=== PATIENT | female | born 1970 | race Two or more races ===

== ENCOUNTER → 2022-07-20 | Outpatient (CLI) | payer BC ==
[2022-07-20 09:53] LABS: Basophils # (auto) 0.1 10 ^3/uL (0-0.2); Basophils % (auto) 1.3 % (0.0-2.0); Eosinophils # (auto) 0.3 10 ^3/uL (0-0.8); Eosinophils % (auto) 5.5 % (0.0-7.0); Hematocrit 44.9 % (36.0-46.0); Hemoglobin 14.9 g/dL (12.2-16.2); Lymphocytes % (auto) 31.5 % (10.0-50.0); Mean Corpuscular Hemoglobin 28.8 pg (28.0-32.0); Mean Corpuscular Hgb Conc. 33.2 g/dL (32.0-36.0); Mean Corpuscular Volume 86.7 fL (80.0-100.0); Monocytes # (auto) 0.4 10 ^3/uL (0-1.3); Monocytes % (auto) 6.5 % (0.0-12.0); Neutrophils # (auto) 3.4 10 ^3/uL (1.6-8.6); Neutrophils % (auto) 55.2 % (37.0-80.0); Nucleated Red Blood Cells % 0.1 %; Red Blood Cells 5.18 10^6/uL (4.0-5.20); Red Cell Distribution Width 14.4 % (11.8-14.3); White Blood Cell 6.2 10^3/uL (4.4-10.8)
[2022-07-20 10:07] LABS: Albumin 3.2 g/dL (3.4-5.0); Calcium 8.9 mg/dL (8.5-10.1); Potassium 4.1 mmol/L (3.5-5.1)
[2022-07-20 10:11] LABS: BUN/Creatinine Ratio 15.6; Bilirubin, Total 0.5 mg/dL (0.2-1.0); Total Protein 8.3 g/dL (6.4-8.2)
== END | disposition home or self-care (01) ==
LOC: LAB 09:15
PROVIDERS: ATTEND Nurse Practitioner Family
DX: Z00.00 Encounter for general adult medical examination without abnormal findings (principal); I10 Essential (primary) hypertension; E11.65 Type 2 diabetes mellitus with hyperglycemia; E78.5 Hyperlipidemia, unspecified
CPT/HCPCS: 36415; 80053; 80061; 82043; 83036; 84439; 84443; 85025

== ENCOUNTER → 2023-11-14 | Outpatient (CLI) | payer OTHER | END | disposition home or self-care (01) | LOC: LAB 10:26 | DX: E03.9 Hypothyroidism, unspecified (principal) | CPT/HCPCS: 36415; 84439; 84443 ==

== ENCOUNTER → 2024-09-02 | Outpatient (CLI) | payer OTHER ==
[2024-09-02 08:21] LABS: Basophils # (auto) 0.1 10 ^3/uL (0-0.2); Basophils % (auto) 1.2 % (0.0-2.0); Eosinophils # (auto) 0.3 10 ^3/uL (0-0.8); Eosinophils % (auto) 3.8 % (0.0-7.0); Hematocrit 44.1 % (36.0-46.0); Hemoglobin 14.3 g/dL (12.2-16.2); Lymphocytes % (auto) 28.8 % (10.0-50.0); Mean Corpuscular Hemoglobin 28.5 pg (28.0-32.0); Mean Corpuscular Hgb Conc. 32.6 g/dL (32.0-36.0); Mean Corpuscular Volume 87.6 fL (80.0-100.0); Monocytes # (auto) 0.5 10 ^3/uL (0-1.3); Monocytes % (auto) 6.7 % (0.0-12.0); Neutrophils # (auto) 4.1 10 ^3/uL (1.6-8.6); Neutrophils % (auto) 59.5 % (37.0-80.0); Nucleated Red Blood Cells % 0.1 %; Platelet Count (auto) 202 10^3/uL (140-450); Red Blood Cells 5.03 10^6/uL (4.0-5.20); White Blood Cell 6.9 10^3/uL (4.4-10.8)
[2024-09-02 08:40] LABS: Creatinine, Urine 99.71 mg/dL (30.0-125.0)
[2024-09-02 08:42] LABS: Alanine Aminotransferase 14 U/L (7-40); Albumin 4.3 g/dL (3.2-4.8); Alkaline Phosphatase 71 U/L (46-116); Anion Gap 6 (5-15); Aspartate Aminotransferase 14 U/L (13-40); BUN/Creatinine Ratio 15.4 (10.0-20.0); Blood Urea Nitrogen 12 mg/dL (9-23); Calcium 9.8 mg/dL (8.7-10.4); Chloride 101 mmol/L (98-107); Potassium 4.7 mmol/L (3.5-5.1); Sodium 140 mmol/L (136-145)
[2024-09-02 08:43] LABS: Bilirubin, Total 0.5 mg/dL (0.2-1.0); Cholesterol 192 mg/dL (< 200); Total Protein 7.6 g/dL (5.7-8.2)
[2024-09-02 08:44] LABS: HDL Cholesterol 49 mg/dL (40-59)
[2024-09-02 08:52] LABS: Carbon Dioxide 33 mmol/L (20-31); Glucose 138 mg/dL (74-106); LDL Cholesterol 120 mg/dL (< 100); Triglycerides 208 mg/dL (< 150)
== END | disposition home or self-care (01) ==
LOC: LAB 07:53
PROVIDERS: ATTEND Nurse Practitioner Family
DX: Z00.01 Encounter for general adult medical examination with abnormal findings (principal); E11.29 Type 2 diabetes mellitus with other diabetic kidney complication
CPT/HCPCS: 36415; 80053; 80061; 82043; 82570; 83036; 84443; 85025

== ENCOUNTER → 2024-09-14 | Outpatient (CLI) | payer OTHER | END | disposition home or self-care (01) | LOC: LAB 07:28 | PROVIDERS: ATTEND Nurse Practitioner Family | DX: E04.9 Nontoxic goiter, unspecified (principal) | CPT/HCPCS: 36415; 84439; 84443 ==

== ENCOUNTER 2025-06-11 08:22 | Inpatient (IN) | payer BC, OTHER ==
[~2025-06-11] VITALS: Ht 165.1 cm; Wt 130.0 kg
[2025-06-11 08:22] VITALS: PULSE 0; O2SAT 0
[2025-06-11 08:30] VITALS: BP 0/0; RESP 0; TEMP 99.5; O2SAT 0
--- NOTE | 2025-06-11 08:32 | ED.PDOC ---
CPR-HPI HPI Comments 55 y.o female with PMHx of COPD and DM, presents to the ED via EMS s/p cardiac arrest. EMS reports patient was last seen normal 45 minutes prior to ED arrival complaining of SOB per on scene. Witnesses on scene initiated CPR while EMS got on scene to take over. A total of 7 Epinephrine were given prior to arrival with rhythm alternating between PEA 40, asystole and back to PEA. BS initially was reported at 110. Upon arrival, patient had a low temperature of 99.5 F. No further information obtain as no family is present at bedside at this time. 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: Unobtainable Family History Family History: Unobtainable Social History Smoker: Unobtainable Alcohol: Unobtainable Drugs: Unobtainable Lives In: Home Unable to Obtain due to: Medical Urgency Physical Exam General Appearance: Obese, Severe Distress HEENT: Other (Pupils are fixed and dilated) Neck: Supple Respiratory: Other (The patient is apneic at this time, the patient is being mechanically ventilated by bag-valve mask) Cardiovascular: Other (Asystole) Breast Exam: Deferred Gastrointestinal: No Organomegaly, Soft Genitalia: Deferred Pelvic: Deferred Rectal: Deferred Extremities: No pedal edema, Other (Delayed capillary refill) Musculoskeletal : Apperance: Normal Neurologic: Other (GCS of three) Cerebellar Function: Unable to Test Reflexes: Normal Skin: Dry, Pallor, Warm Lymphatic: No Adenopathy EKG EKG : Pulse Rate (adult): 133 Cardiac Rhythm: Afib (Rapid response) Was a procedure done? Was a procedure done?: Yes Sedation Sedation?: No Intubation Indication: Respiratory Insufficiency, Altered Mental Status, Airway Protection Prep: Preoxygenation Pretreated with: Sedation Intubation Approach: Orotracheal Intubation size: cm (8.0 inch ) Informed consent obtained: No (Emergent) Risks/benefits/alt described: No (Emergent ) Differential Dx CPR Differential Diagnosis: Cardiopulmonary arrest, Cardiac Tamponade, Cardiogenic shock, Dysrhythmia, Electrolyte disorder, Heart Block, Myocardial Infarction, Pneumothorax, Pulmonary Embolus, Respiratory Failure X-Ray, Labs, Meds, VS Vital Signs Date Time Temp Pulse Resp B/P (MAP) Pulse Ox O2 Delivery O2 Flow Rate FiO2 06/11/25 08:30 99.5 0 0 0/0 0 99.5 06/11/25 08:22 0 0 Mechanical Ventilator+ 100 100 06/11/25 08:22 99.2 0 0 0/0 (0) 0 99.2 IV Hep-Lock was established. We did a 2nd Hep-Lock at this time. ACLS was followed. The patient was intubated with an 8.0 endotracheal tube. CPR was continued The patient had into atrial fibrillation with rapid response. The patient was hypotensive so the patient was started on amiodarone 150 mg IV push and then an amiodarone drip. The patient was also started on norepinephrine. At this time, despite our efforts, the patient has a . We were able to talk with the patient's as well as son. They are aware of the patient's condition. We were briefly able to get a pulse back when the patient went into atrial fibrillation with rapid response Time of 1ST Reevaluation: 08:27 Reevaluation 1ST: Unchanged Patient Education/Counseling: Pt Unresponsive Family Education/Counseling: Diagnosis, Treatment, Prognosis SEPSIS Sepsis Screen Physician Orders Complete Blood Count (06/11/25 08:31) Weston Catheters (06/11/25 08:31) Ngt/Ogt (06/11/25 08:31) Supervisor Covering And Lining (06/11/25 08:31) Blood Pressure (06/11/25 08:31) Pulse Oximetry (06/11/25 08:31) Heplock Iv (06/11/25 08:31) Electrocardigram (06/11/25 08:31) Electrocardigram (06/11/25 09:31) Electrocardigram (06/11/25 11:31) Amiodarone 450mg/250ml Ae (Cordarone) (06/11/25 08:45) Vital Signs Date Time Temp Pulse Resp B/P (MAP) Pulse Ox O2 Delivery O2 Flow Rate FiO2 06/11/25 08:30 99.5 0 0 0/0 0 99.5 06/11/25 08:22 0 0 Mechanical Ventilator+ 100 100 06/11/25 08:22 99.2 0 0 0/0 (0) 0 99.2 Departure 1 Departure Time of Disposition: 09:35 Impression: Primary Impression: Cardiopulmonary arrest Disposition: 20 Condition: Other (The patient ) Critical Care Note Critical Care Time?: No Heart Score Heart Score: Heart Score Response (Comments) Value History N/A 0 EKG N/A 0 Age N/A 0 Risk Factors N/A 0 Troponin N/A 0 Total 0 Stability Stability form required: No I personally scribed for HARRIET LIMA MD ([email or web address]) on 06/11/25 at 08:32. Electronically submitted by Lore Gotti ([facility]). HARRIET LIMA MD Jun 11, 2025 08:32
[2025-06-11] MEDS ORDERED: AMIODARONE BOLUS KIT 100 ML IV ONE (08:45)
[2025-06-11] MEDS ORDERED: NOREPINEPHRINE 8 MG/250ML KIT 250 ML IV SCH (08:45)
[2025-06-11] MEDS ORDERED: ACETAMINOPHEN 325 MG TAB PO PRN (08:45)
[2025-06-11] MEDS ORDERED: ONDANSETRON HCL 4 MG/2 ML VIAL IV PRN (08:45)
[2025-06-11] MEDS ORDERED: NITROGLYCERIN 0.4 MG SL TAB SL PRN (08:45)
[2025-06-11] MEDS ORDERED: DEXTROSE (50%) 50ML SYRG IV PRN (08:45)
[2025-06-11] MEDS ORDERED: MIDAZOLAM DRIP 100 mg/100mL NS 100 ML IV SCH (08:45)
[2025-06-11] MEDS ORDERED: MORPHINE SULFATE INJ 2 MG/ml SYRG IV PRN (08:45)
--- NOTE | 2025-06-11 08:47 | DVHHP2 ---
History of Present Illness Reason for Visit: Status post cardiac arrest History of Present Illness Jerica Johnson is a 55-year-old female with past medical history per EMS of COPD and diabetes who presents to the ED after experiencing shortness of breath with her by her side. Per EMS reports patient was found in asystole CPR was started and then PE noted on monitor with chest compressions continued for about 35 minutes on the field. Patient was then transferred here to [facility] and intubated in the ED by the ER doctor with an 8.0 ETT and chest compressions were resumed immediately. Patient had access initially EN route by EMS left IO in tib-fib. Rosc was achieved in ED. Second code blue was called and patient . Pulmonary: COPD Endocrine: Diabetes Lives: with Family Domestic Violence: Neg Review of Systems Constitutional: Yes: Other (Status post cardiac arrest) Allergies: Coded Allergies: UNOBTAINABLE (Unverified , 06/11/25) Medications Current Medications Medications Dose Ordered Sig/Fidelia Route Start Time Stop Time Status Last Admin Dose Admin Norepinephrine Bitartrate 250 ml @ 3.75 mls/hr Q24H IV 06/11/25 08:45 Ondansetron HCl 4 mg Q4HP PRN IV 06/11/25 08:45 UNV Acetaminophen 650 mg Q6HP PRN PO 06/11/25 08:45 UNV Nitroglycerin 0.4 mg Q5MINP PRN SL 06/11/25 08:45 UNV Morphine Sulfate 2 mg Q30M PRN IV 06/11/25 08:45 UNV Diagnostic Test (Pha) 1 strip Q6HR 06/11/25 12:00 UNV Insulin Human Regular Q6HR SC 06/11/25 12:00 UNV Dextrose 50 ml UD PRN IV 06/11/25 08:45 UNV Exam Vital Signs Vital Signs Date Time Temp Pulse Resp B/P (MAP) Pulse Ox O2 Delivery O2 Flow Rate FiO2 06/11/25 08:33 133 06/11/25 08:30 99.5 0 0/0 0 99.5 Abdominal: Soft SEPSIS Sepsis Screen Date sepsis recognized/suspect: Jun 11, 2025 Time Sepsis recognized/suspect: 821 Recent Procedure: No On Antibiotic Therapy: No Respiratory Rate >20: No Heart Rate >90: No Temp<36 C (96.8 F) or >38.3 C: No SBP <90 or MAP <65 mmHG: No New Acute Mental Status Change: Yes Is the patient on CPAP, BIPAP,: Yes Physician Orders Complete Blood Count (06/11/25 08:31) Urinalysis (06/11/25 08:31) Chest Portable (06/11/25 08:31) Drug Screen (06/11/25 08:31) Magnesium (06/11/25 08:31) Abg W/ Co-Ox (06/11/25 08:31) Weston Catheters (06/11/25 08:31) Ngt/Ogt (06/11/25 08:31) Cafeteria Associate (06/11/25 08:31) Blood Pressure (06/11/25 08:31) Pulse Oximetry (06/11/25 08:31) Heplock Iv (06/11/25 08:31) Troponin-I Hs (06/11/25 08:31) Electrocardigram (06/11/25 08:31) Basic Metabolic Panel (06/11/25 08:31) Troponin-I Hs (06/11/25 09:31) Troponin-I Hs (06/11/25 11:31) Electrocardigram (06/11/25 09:31) Electrocardigram (06/11/25 11:31) Amiodarone Bolus Kit (Cordarone) (06/11/25 08:45) Amiodarone 450mg/250ml Ae (Cordarone) (06/11/25 08:45) Norepinephrine 8 Mg/250ml Kit (Levophed) (06/11/25 08:45) Admit (06/11/25 08:32) Allergies (06/11/25 08:32) Code Status (06/11/25 08:32) Ondansetron Hcl (Zofran) (06/11/25 08:45) Complete Blood Count (06/12/25 04:00) Comprehensive Metabolic Panel (06/12/25 04:00) Npo (Nothing By Mouth) Diet (06/11/25 Breakfast) Echo 2d Mode Cardiac Dop (06/11/25 08:32) Acetaminophen Tablet (Tylenol Tablet) (06/11/25 08:45) Morphine Sulfate Injection (06/11/25 08:45) Stat Ekg For Chest Pain (06/11/25 08:32) Notify Md Of Changes From Base (06/11/25 08:32) Licensed Journeyman Electrician For 24 Hours (06/11/25 08:32) Emergency Dysrhythmia Protocol (06/11/25 08:32) Rhythm Strips Once Every Shift (06/11/25 08:32) Oxygen By Nasal Cannula (06/11/25 08:32) Glucose Blood (Accu-Chek Comfort Curve T (06/11/25 12:00) Insulin R (Human) (Insulin R) (06/11/25 12:00) Dextrose 50% Syringe (06/11/25 08:45) Head Without Contrast (06/11/25 08:32) Chest Xray 1 View (06/11/25 08:32) Ventilator Setup (06/11/25 08:32) Abg W/ Co-Ox (06/11/25 08:32) Respiratory Culture W/ Gs (06/11/25 08:32) Urinalysis (06/11/25 08:32) Drug Screen (06/11/25 08:32) Lactic Acid W/ Reflex Order (06/11/25 08:32) Blood Culture (06/11/25 08:32) Urine Bacterial Culture (06/11/25 08:32) Weston Catheters (06/11/25 ) Insert Weston Catheter QSHIFT (06/11/25 08:32) Sequential Compression Device (06/11/25 ) Nitroglycerin Sublingual (Ntrostat Subli (06/11/25 08:45) Complete Blood Count (06/11/25 08:38) Comprehensive Metabolic Panel (06/11/25 08:38) Vital Signs Date Time Temp Pulse Resp B/P (MAP) Pulse Ox O2 Delivery O2 Flow Rate FiO2 06/11/25 08:33 133 06/11/25 08:30 99.5 0 0 0/0 0 99.5 Assessment/Plan Assessment/Plan Assessment Status post cardiac arrest Acute hypoxic respiratory failure on mechanical ventilation and intubated on 06/11/25 Morbid obesity History of COPD History of diabetes Plan Admit to ICU Ventilator management Vasopressors to keep maps greater than 65 Amnio drip started by ED EKG Troponin Echo ordered Hemoglobin A1c ISS and Accu-Cheks CT head ordered Chest x-ray ordered ABG serial Respiratory culture UA UDS Lactic Blood cultures Urine culture Weston catheter NPO Home medications reconciled DVT prophylaxis-SCDs PUD prophylaxis-PPIs Discussed plan of care with nurse We will need to counseled patient on lifestyle modifications, diet, and exercise [id number] Preventive counseling healthy eating habits, physical activity, and regular checkups Plan discussed with: Other My Orders Orders - [facility] Procedure Category Date Status Time Admit ADMIT 06/11/25 Transmitted 08:32 Allergies JANES 06/11/25 In Process 08:32 Code Status CODE 06/11/25 Transmitted 08:32 Ondansetron Hcl PHA 06/11/25 Logged (Zofran) 08:45 Complete Blood Count LAB 06/12/25 Verified 04:00 Comprehensive LAB 06/12/25 Verified Metabolic Panel 04:00 Npo (Nothing By DIET 06/11/25 Transmitted Mouth) Diet Breakfast Echo 2d Mode Cardiac US 06/11/25 Logged DOP 08:32 Acetaminophen Tablet PHA 06/11/25 Logged (Tylenol Tablet) 08:45 Morphine Sulfate PHA 06/11/25 Logged Injection 08:45 Stat Ekg For Chest [facility] 06/11/25 In Process Pain 08:32 Notify Of Changes [facility] 06/11/25 In Process From Base 08:32 Licensed Journeyman Electrician For [facility] 06/11/25 In Process 24 Hours 08:32 Emergency Dysrhythmia [facility] 06/11/25 In Process Protocol 08:32 Rhythm Strips Once [facility] 06/11/25 In Process Every Shift 08:32 Oxygen By Nasal RT 06/11/25 Transmitted Cannula 08:32 Glucose Blood PHA 06/11/25 Logged (Accu-Chek Comfort 12:00 Insulin R (Human) PHA 06/11/25 Logged (Insulin R) 12:00 Dextrose 50% Syringe PHA 06/11/25 Logged 08:[address] 06/11/25 Logged 08:32 Chest Xray 1 View XY 06/11/25 Logged 08:32 Ventilator Setup RT 06/11/25 Logged 08:32 Abg W/ Co-Ox RT 06/11/25 Logged 08:32 Respiratory Culture ROXANNA 06/11/25 Logged W/ Gs 08:32 Urinalysis LAB 06/11/25 Logged 08:32 Drug Screen LAB 06/11/25 Logged 08:32 Lactic Acid W/ Reflex LAB 06/11/25 Logged Order 08:32 Blood Culture ROXANNA 06/11/25 Logged 08:32 Urine Bacterial ROXANNA 06/11/25 Logged Culture 08:32 Weston Catheters ED NURSING 06/11/25 Transmitted Insert Weston Catheter JANES 06/11/25 In Process 08:32 Sequential JANES 06/11/25 In Process Compression Device Nitroglycerin PHA 06/11/25 Logged Sublingual (Ntrostat 08:45 Complete Blood Count LAB 06/11/25 Transmitted 08:38 Comprehensive LAB 06/11/25 Transmitted Metabolic Panel 08:38 Date of Service: Jun 11, 2025 Billing Provider: BRUCE JOHNSON Common Visit Codes: [id number] INP/OBS CARE (HIGH) Secondary Visit Codes: [id number] COUNSELING IND BRUCE JOHNSON Jun 11, 2025 08:47
[2025-06-11] MEDS ORDERED: EPINEPHrine HCL 1 MG/10 ML SYRG ONE (08:50)
[2025-06-11 08:53] LABS: Potassium 4.7 mmol/L (3.5-5.1)
[2025-06-11 08:54] LABS: Anion Gap 23 (5-15)
[2025-06-11 08:56] LABS: Hematocrit 32.3 % (36.0-46.0); Hemoglobin 8.9 g/dL (12.2-16.2); Mean Corpuscular Hemoglobin 28.6 pg (28.0-32.0); Mean Corpuscular Volume 104.1 fL (80.0-100.0)
[2025-06-11 09:00] LABS: BUN/Creatinine Ratio 17.0 (10.0-20.0)
[2025-06-11 09:05] LABS: Blood Urea Nitrogen 8 mg/dL (9-23); Chloride 117 mmol/L (98-107); Glucose 121 mg/dL (74-106); Magnesium 1.5 mg/dL (1.6-2.6); Sodium 150 mmol/L (136-145)
[2025-06-11 09:12] LABS: Calcium 5.9 mg/dL (8.7-10.4); Carbon Dioxide 10 mmol/L (20-31)
[2025-06-11 09:40] VITALS: PULSE 133
--- NOTE | 2025-06-11 10:00 | RESUS ---
CODE BLUE ASSESSSMENT History of Events History of Events: Brought in by ambulance with CPR in progress. Per EMS, patient was experiencing difficulty breathing and went down about 35 mnutes prior to ED arrival. EMS started CPR, gave 7 rounds of epi. Was in PEA and asystole in field. Initial Information Date: Jun 11, 2025 Time: 08:22 Location of Arrest: In Field Arrest Witnessed: Yes CPR started by whom: EMS Pre-Hospital Care: ACLS Type of arrest: Cardiac Spontaneous Respirations: No Pulse Present: No Monitoring: ECG, Capnography Crash Cart Opened and Supplies: Yes Airway Ventilation Breathing at Onset: Assisted Oxygen Delivery Method: Ambu-Bag Artificial Ventilation: Bag/Mask Intubation Time: 08:24 Intubation Size: 8.0 cuffed Intubated by: farideh Intubation Attempts: 1 Intubated orally: Yes Intubated Nasaly: No Tube secured at: 26 CO2 indicator used: Yes Confirmation: Auscultation, Exhaled CO2 Suctioning (Oral/Tracheal): Yes Circulation Circulation #1: Time: 08:25 Pulse Rate (adult): 0 Blood Pressure Systolic: 0 Blood Pressure Diastolic: 0 Temperature (Fahrenheit): 99.5 Circulation Comment: asystole Circulation #2: Time: 08:27 Pulse Rate (adult): 0 Blood Pressure Systolic: 0 Blood Pressure Diastolic: 0 Circulation Comment: asystole Circulation #3: Time: 08:29 Pulse Rate (adult): 139 Blood Pressure Systolic: 201 Blood Pressure Diastolic: 167 Circulation Comment: sinus tachycardia, wide qrs complex Procedure - IV Procedure - IV : IV start time: 08:25 IV Side: Right IV Location: Hand IV Catheter Type: Saline Lock IV Placed: In Hospital IV Gauge: 20 IV Line Care: Saline Flush Procedure - Intraosseous Site of Intraosseous: Tibia fermin-medial Intraosseous inserted by: EMS Number of attempts for Intraos: 1 Medications & Response Medications and Responses #1: Medication Time: 08:23 ADULT Medications Given ADULT: Epinephrine 1 mg Route of Administration: IO Heart Rate: 0 EKG Rhythm: Asystole Blood Pressure Systolic: 0 Blood Pressure Diastolic: 0 Respiratory Rate: 0 O2 Sat by Pulse Oximetry: 0 EKG Rhythm: Asystole Medications and Responses #2: Medication Time: 08:24 ADULT Medications Given ADULT: Sodium Bacarbinate 50 meq Route of Administration: IO EKG Rhythm: Asystole Blood Pressure Systolic: 0 Blood Pressure Diastolic: 0 Respiratory Rate: 0 O2 Sat by Pulse Oximetry: 0 EKG Rhythm: Asystole Medications and Responses #3: Medication Time: 08:26 ADULT Medications Given ADULT: Epinephrine 1 mg Route of Administration: IV EKG Rhythm: Asystole Blood Pressure Systolic: 0 Blood Pressure Diastolic: 0 Respiratory Rate: 0 O2 Sat by Pulse Oximetry: 0 EKG Rhythm: Asystole Nurses Notes [place] Coma Scale Eye Opening: None (1) [place] Coma Scale Verbal: None (1) [place] Coma Scale Motor: None (1) [place] Total: 3 Pupil Reaction: Non Reactive Bedside Blood Glucose: 135 EKG Rhythm: Asystole Time Code Ended Time Code Ended: 08:29 Post Arrest Status: Ventilated Outcome of code: Successful Family notified: Yes Attending called: No Code Team Present: Mima Ware RT, Jon EMT, Nancy EMT, Janet RN, Salvatore RN, Eric RN, Carlos RN Post Resuscitation Neurologica Pupil Size: 10 ROSC Time of ROSC: 08:29 Pt Meets Criteria for Therapeu: No CARLOS JONES Jun 11, 2025 10:00
--- NOTE | 2025-06-11 10:20 | RESUS ---
CODE BLUE ASSESSSMENT History of Events History of Events: Heart rate noted to drop into the 30's and pulses not palpable. CPR initiated. Initial Information Date: Jun 11, 2025 Time: 08:43 Location of Arrest: ER Arrest Witnessed: Yes CPR started by whom: Hospital Staff Pre-Hospital Care: ACLS Type of arrest: Cardiac Spontaneous Respirations: No Pulse Present: No Monitoring: ECG, Pulse Oximetry, Telemetry Crash Cart Opened and Supplies: Yes Airway Ventilation Breathing at Onset: Assisted Oxygen Delivery Method: Ambu-Bag Artificial Ventilation: Bag/Endo tube Intubation Size: 8.0 cuffed Comments: intubated during prior code blue Circulation Circulation #1: Time: 08:43 Pulse Rate (adult): 0 Blood Pressure Systolic: 0 Circulation #2: Time: 08:45 Pulse Rate (adult): 0 Blood Pressure Systolic: 81 Blood Pressure Diastolic: 41 Circulation #3: Time: 08:46 Pulse Rate (adult): 0 Blood Pressure Systolic: 0 Blood Pressure Diastolic: 0 Circulation Comment: PEA Medications & Response Medications and Responses #1: Medication Time: 08:44 ADULT Medications Given ADULT: Epinephrine 1 mg Route of Administration: IV EKG Rhythm: PEA Blood Pressure Systolic: 0 Blood Pressure Diastolic: 0 Respiratory Rate: 0 O2 Sat by Pulse Oximetry: 0 EKG Rhythm: PEA Medications and Responses #2: Medication Time: 08:45 ADULT Medications Given ADULT: Sodium Bacarbinate 50 meq Route of Administration: IV EKG Rhythm: PEA EKG Rhythm: PEA Medications and Responses #3: Medication Time: 08:47 ADULT Medications Given ADULT: Epinephrine 1 mg Heart Rate: 0 EKG Rhythm: PEA EKG Rhythm: PEA Pacing Pacer Pads Applied and Pacing: No Nurses Notes [place] Coma Scale Eye Opening: None (1) [place] Coma Scale Verbal: None (1) [place] Coma Scale Motor: None (1) Pupil Reaction: Non Reactive Bedside Blood Glucose: 135 EKG Rhythm: PEA, Asystole Time Code Ended Post Arrest Status: Outcome of code: Unsuccessful Patient pronounced by: Vannessa Time patient pronounced: 08:52 Family notified: Yes Attending called: No Code Team Present: Mima Ware RT, Nuno EMT, Salvatore RN, Janet RN, Carlos RN Post Resuscitation Neurologica Pupil Size: 10 Comment: Nonreactive, dilated CARLOS JONES Jun 11, 2025 10:20
[2025-06-11 10:28] LABS: Total Cells Counted 100.0 (100)
[2025-06-11 10:29] LABS: Macrocytosis Moderate
[2025-06-11] MEDS ORDERED: ACCU-CHEK COMFORT CURVE STRIP VI SCH (12:00)
[2025-06-11] MEDS ORDERED: InsuLIN REG 1unit/0.01ml Soln (100units/ml) SC SCH (12:00)
--- NOTE | 2025-06-14 09:42 | ECG ---
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
== END 2025-06-11 08:52 | DRG 208 ==
LOC: EDBD 08:22 → ER 08:22 → OVERFLOW 08:32
PROC: 0BH17EZ Insertion of Endotracheal Airway into Trachea, Via Natural or Artificial Opening (ICD-10-PCS; principal; 2025-06-11)
PROC: 5A1935Z Respiratory Ventilation, Less than 24 Consecutive Hours (ICD-10-PCS; 2025-06-11)
PROC: 5A12012 Performance of Cardiac Output, Single, Manual (ICD-10-PCS; 2025-06-11)
DX: J96.01 Acute respiratory failure with hypoxia (principal); I46.9 Cardiac arrest, cause unspecified; J44.9 Chronic obstructive pulmonary disease, unspecified; E11.9 Type 2 diabetes mellitus without complications; E66.01 Morbid (severe) obesity due to excess calories; Z68.42 Body mass index [BMI] 45.0-49.9, adult; F17.200 Nicotine dependence, unspecified, uncomplicated
CPT/HCPCS: 31500; 36415; 80048; 83735; 84484; 85007; 85027; 93005; G0378